=== PATIENT | female | born 1980 | race Caucasian/White ===

== ENCOUNTER 2019-06-23 19:59 | Emergency (ER) | payer OTHER ==
[2019-06-23 20:53] LABS: Absolute Lymphocytes (CBC) 2.9 K/uL (0.7-4.9); Basophils % 0.4 % (0-1.3); Hematocrit 36.7 % (36.0-45.0); MPV 9.2 fL (7.6-11.3); RBC Red Blood Cell Count 4.11 M/uL (3.86-4.86)
[2019-06-23 20:57] LABS: Protime INR 1.02
[2019-06-23 21:13] LABS: ALT/SGPT 34 U/L (12-78); AST/SGOT 18 U/L (15-37); Albumin 3.7 g/dL (3.4-5.0); Alkaline Phosphatase 72 U/L (45-117); BUN Blood Urea Nitrogen 13 mg/dL (7-18); Bicarbonate 27 mmol/L (21-32); Bilirubin Direct < 0.1 mg/dL (0-0.2); Bilirubin Total 0.2 mg/dL (0.2-1.0); Glucose Level 85 mg/dL (74-106); NT PRO-BNP 67 pg/mL (<125); Potassium 3.7 mmol/L (3.5-5.1); Protein, Total 7.3 g/dL (6.4-8.2); Sodium Level 141 mmol/L (136-145); Troponin (Emerg Dept Use Only) < 0.02 ng/mL (0.0-0.045)
[2019-06-23] MEDS ORDERED: FENTANYL CITR 100 MCG/2 ML ONE (21:19)
--- NOTE | 2019-06-23 23:27 | EDPHYS ---
Physician Documentation [facility] Name: Paris Lopez Age: 39 yrs Sex: Female : 1980 Arrival Date: 06/23/2019 Time: 20:05 Bed 28 Private MD: ED Physician Nirav Mobley HPI: 06/24 00:47 This 39 yrs old Female presents to ER via Wheelchair with complaints of Chest gs Pain. 00:47 The patient or guardian reports chest pain that is located primarily in the substernal gs area, anterior chest wall. The pain does not radiate. Associated signs and symptoms: Pertinent negatives: abdominal pain, diaphoresis, near syncope, shortness of breath. The chest pain is described as dull. Duration: The patient or guardian reports multiple episodes, that are intermittent, that wax and wane, with no pattern. Modifying factors: The symptoms are alleviated by nothing. the symptoms are aggravated by nothing. Severity of pain: At its worst the pain was moderate in the emergency department the pain is unchanged. The patient has experienced a previous episode. The patient has not recently seen a physician. 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 - Social history:: Smoking status: Patient/guardian denies using tobacco. - Ebola Screening: : Patient negative for fever greater than or equal to 101.5 degrees Fahrenheit, and additional compatible Ebola Virus Disease symptoms. ROS: 06/24 00:47 All other systems are negative. gs Exam: 00:47 Head/Face: Normocephalic, atraumatic. Eyes: Pupils equal round and reactive to light, gs extra-ocular motions intact. Lids and lashes normal. Conjunctiva and sclera are non-icteric and not injected. Cornea within normal limits. Periorbital areas with no swelling, redness, or edema. ENT: Nares patent. No nasal discharge, no septal abnormalities noted. Tympanic membranes are normal and external auditory canals are clear. Oropharynx with no redness, swelling, or masses, exudates, or evidence of obstruction, uvula midline. Mucous membranes moist. Neck: Trachea midline, no thyromegaly or masses palpated, and no cervical lymphadenopathy. Supple, full range of motion without nuchal rigidity, or vertebral point tenderness. No Meningismus. Chest/axilla: Normal chest wall appearance and motion. Nontender with no deformity. No lesions are appreciated. Cardiovascular: Regular rate and rhythm with a normal S1 and S2. No gallops, murmurs, or rubs. Normal PMI, no JVD. No pulse deficits. Respiratory: Lungs have equal breath sounds bilaterally, clear to auscultation and percussion. No rales, rhonchi or wheezes noted. No increased work of breathing, no retractions or nasal flaring. Abdomen/GI: Soft, non-tender, with normal bowel sounds. No distension or tympany. No guarding or rebound. No evidence of tenderness throughout. Back: No spinal tenderness. No costovertebral tenderness. Full range of motion. Skin: Warm, dry with normal turgor. Normal color with no rashes, no lesions, and no evidence of cellulitis. MS/ Extremity: Pulses equal, no cyanosis. Neurovascular intact. Full, normal range of motion. Neuro: Awake and alert, GCS 15, oriented to person, place, time, and situation. Cranial nerves II-XII grossly intact. Motor strength 5/5 in all extremities. Sensory grossly intact. Cerebellar exam normal. Normal gait. 00:47 Constitutional: The patient appears alert, awake. 00:47 ECG was reviewed by the Attending Physician. Vital Signs: 06/23 20:15 BP 155 / 83; Pulse 73; Resp 18 S; Temp 97.6(O); Pulse Ox 98% on R/A; Weight 115.67 kg jd3 (R); Height 5 ft. 9 in. (175.26 cm) (R); Pain 8/10; 21:15 BP 139 / 78; Pulse 69; Resp 15; Pulse Ox 96% on R/A; Pain 8/10; ss 22:22 BP 128 / 70; Pulse 76; Resp 15; Pulse Ox 99% on R/A; ss 20:15 Body Mass Index 37.66 (115.67 kg, 175.26 cm) jd3 MDM: 21:14 Patient medically screened. 23:26 Counseling: I had a detailed discussion with the patient and/or guardian regarding: the gs historical points, exam findings, and any diagnostic results supporting the discharge/admit diagnosis, the presence of at least one elevated blood pressure reading (>120/80) during this emergency department visit. Special discussion: I have referred the patient to see his PCP for further evaluation of high blood pressure. 06/24 00:47 Differential diagnosis: abnormal EKG, acute myocardial infarction, chest wall pain, gs pleurisy, pulmonary embolus, thoracic aortic disection. Data reviewed: vital signs, nurses notes, lab test result(s), EKG, radiologic studies. Counseling: I had a detailed discussion with the patient and/or guardian regarding: lab results, radiology results, the need for outpatient follow up. Response to treatment: the patient's symptoms have resolved after treatment, the patient's pain is gone, the patient's condition has returned to base line. 06/23 20:20 Order name: Basic Metabolic Panel; Complete Time: 21: 06/23 20:20 Order name: CBC with Diff; Complete Time: : 06/23 20:20 Order name: LFT's; Complete Time: 21: 06/23 20:20 Order name: Magnesium; Complete Time: : 06/23 20:20 Order name: NT PRO-BNP; Complete Time: 21: 06/23 20:20 Order name: PT-INR; Complete Time: 21: 06/23 20:20 Order name: Troponin (emerg Dept Use Only); Complete Time: : 06/23 20:20 Order name: XRAY Chest (1 view) 06/23 20:20 Order name: EKG; Complete Time: 20:21 06/23 20:20 Order name: Cardiac monitoring; Complete Time: 20:20 06/23 21:15 Order name: CT Chest For PE Angio 06/23 22:33 Order name: Troponin (emerg Dept Use Only); Complete Time: 23:18 06/23 20:20 Order name: EKG - Nurse/Tech; Complete Time: 20:21 06/23 20:20 Order name: IV Saline Lock; Complete Time: 20:21 06/23 20:20 Order name: Labs collected and sent; Complete Time: 20:21 06/23 20:20 Order name: O2 Per Protocol; Complete Time: 20: ss 06/23 20:20 Order name: O2 Sat Monitoring; Complete Time: 20: ss EC:47 Rate is 73 beats/min. Rhythm is regular. NV interval is normal. QRS interval is normal. gs No Q waves. T waves are Normal. No ST changes noted. Clinical impression: Normal ECG. Interpreted by me. Administered Medications: 06/23 21:24 Not Given (Hemodynamic Parameters; BP 139/78 Dr. Mobley notified ): Enalaprilat 0.625 mg ss IV at calculated rate once 21:24 Drug: fentaNYL (PF) 25 mcg {Note: 0.} Route: IVP; Site: left antecubital; ss 22:48 Follow up: Response: No adverse reaction; Pain is decreased; RASS: Alert and Calm (0) ss Disposition: 06/23/19 23:26 Discharged to Home. Impression: Chest pain, unspecified. - Condition is Stable. - Discharge Instructions: Nonspecific Chest Pain, Managing Your Hypertension. - Medication Reconciliation Form, Thank You Letter, Antibiotic Education, Prescription Opioid Use form. - Follow up: Private Physician; When: 2 - 3 days; Reason: Re-evaluation by your physician. Follow up: Hayden Liang MD; When: 2 - 3 days; Reason: Re-evaluation by your physician. Signatures: Dispatcher [employer] Lisa Montelongo RN RN ss Starr, Gregory, MD MD gs Davies, Jonathon, RN RN jd3 Corrections: (The following items were deleted from the chart) 23:40 23:26 06/23/2019 23:26 Discharged to Home. Impression: Chest pain, unspecified. ss Condition is Stable. Forms are Medication Reconciliation Form, Thank You Letter, Antibiotic Education, Prescription Opioid Use. Follow up: Private Physician; When: 2 - 3 days; Reason: Re-evaluation by your physician. Follow up: Hayden Liang; When: 2 - 3 days; Reason: Re-evaluation by your physician. gs
--- NOTE | 2019-06-23 23:27 | ER ---
Nurse's Notes [facility] Name: Paris Lopez Age: 39 yrs Sex: Female : 1980 Arrival Date: 06/23/2019 Time: 20:05 Bed 28 Private MD: Diagnosis: Chest pain, unspecified Presentation: 06/23 20:12 Presenting complaint: Patient states: "I have had chest pain since about 1200. it jd3 radiates to my left arm and under my left breast. It is also causing me to have shortness of breath and nausea.". Transition of care: patient was not received from another setting of care. Onset of symptoms was June 23, 2019. Risk Assessment: Do you want to hurt yourself or someone else? Patient reports no desire to harm self or others. Initial Sepsis Screen: Does the patient meet any 2 criteria? No. Patient's initial sepsis screen is negative. Does the patient have a suspected source of infection? No. Patient's initial sepsis screen is negative. Care prior to arrival: None. 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 - Social history:: Smoking status: Patient/guardian denies using tobacco. - Ebola Screening: : Patient negative for fever greater than or equal to 101.5 degrees Fahrenheit, and additional compatible Ebola Virus Disease symptoms. Screenin:21 Abuse screen: Denies threats or abuse. Denies injuries from another. Nutritional ss screening: No deficits noted. Tuberculosis screening: Never had TB. Fall Risk None identified. Assessment: 20:07 General: Appears in no apparent distress. comfortable, Behavior is calm, cooperative, ss quiet, Reports feeling ill for since noon today. Denies fever, fatigue, chills. Pain: Complains of pain in left breast Pain radiates to left arm Pain currently is 8 out of 10 on a pain scale. Quality of pain is described as aching, Pain began noon today Is continuous. Neuro: Level of Consciousness is awake, alert, obeys commands, Oriented to person, place, time, situation, Speech is normal, Facial symmetry appears normal, Pupils are PERRLA. Cardiovascular: Capillary refill < 3 seconds is brisk in bilateral fingers. Respiratory: Reports mild shortness of breath due to pain Breath sounds are clear bilaterally. Denies cough, pain with respiration, pain with cough, pain with movement. GI: Abdomen is non-distended, Bowel sounds present X 4 quads. Reports nausea, since noon today Patient currently denies diarrhea, vomiting. : No signs and/or symptoms were reported regarding the genitourinary system. Denies burning with urination, urinary frequency. EENT: Oral mucosa is moist. Derm: Skin is intact, is healthy with good turgor, Skin is dry, Skin is pink, warm \\T\\ dry. normal. 21:15 Reassessment: Patient appears in no apparent distress at this time. No changes from previously documented assessment. Patient and/or family updated on plan of care and expected duration. Pain level reassessed. 21:39 Reassessment: Pt to cT at this time VIA stretcher. ss 22:46 Reassessment: Repeat troponin sent. Awaiting results. Patient appears comfortable at this time. Friend/ family member remains at bedside at this time. Vital Signs: 20:15 BP 155 / 83; Pulse 73; Resp 18 S; Temp 97.6(O); Pulse Ox 98% on R/A; Weight 115.67 kg jd3 (R); Height 5 ft. 9 in. (175.26 cm) (R); Pain 8/10; 21:15 BP 139 / 78; Pulse 69; Resp 15; Pulse Ox 96% on R/A; Pain 8/10; ss 22:22 BP 128 / 70; Pulse 76; Resp 15; Pulse Ox 99% on R/A; ss 20:15 Body Mass Index 37.66 (115.67 kg, 175.26 cm) jd3 ED Course: 20:05 Patient arrived in ED. cl3 20:10 EKG done, by ED staff, reviewed by Nirav Mobley MD. jp3 20:12 Nirav Mobley MD is Attending Physician. gs 20:14 Triage completed. jd3 20:15 Warm blanket given. Verbal reassurance given. jp3 20:17 Arm band placed on. EKG completed in triage. Results shown to . noble 20:21 Patient has correct armband on for positive identification. Placed in gown. Bed in low ss position. Call light in reach. Side rails up X 1. electronic device monitor on. Pulse ox on. NIBP on. 20:21 Inserted saline lock: in left antecubital area, using aseptic technique. Blood ss collected. Patient maintains SpO2 saturation greater than 95% on room air. 20:31 Lisa Murry, RN is Primary Nurse. ss 20:51 XRAY Chest (1 view) In Process Unspecified. EDMS 22:03 CT Chest For PE Angio In Process Unspecified. EDMS 23:23 Hayden Liang MD is Referral Physician. 23:37 No provider procedures requiring assistance completed. IV discontinued, intact, ss bleeding controlled, No redness/swelling at site. Pressure dressing applied. Administered Medications: 21:24 Not Given (Hemodynamic Parameters; BP 139/78 Dr. Mobley notified ): Enalaprilat 0.625 mg ss IV at calculated rate once 21:24 Drug: fentaNYL (PF) 25 mcg {Note: 0.} Route: IVP; Site: left antecubital; ss 22:48 Follow up: Response: No adverse reaction; Pain is decreased; RASS: Alert and Calm (0) ss Outcome: 23:26 Discharge ordered by MD. 23:37 Discharged to home ambulatory, with friend. ss 23:37 Condition: good 23:37 Discharge instructions given to patient, friend, Instructed on discharge instructions, follow up and referral plans. medication usage, Demonstrated understanding of instructions, follow-up care, medications. 23:40 Patient left the ED. ss Signatures: Dispatcher [employer] EDKS Lisa Murry, RN Nirav Schwartz MD MD gs Davies, Jonathon, RN RN Joaquin Verdugo jp3 Edwin Peña
--- NOTE | 2019-06-24 08:00 | RAD REPORT ---
EXAM DESCRIPTION: RAD - Chest Single View - 06/23/2019 8:51 pm CLINICAL HISTORY: Chest pain COMPARISON: June 2010 TECHNIQUE: AP portable chest image was obtained 2033 . FINDINGS: Lung volumes are low accentuating lung markings. No focal consolidation. Mild interstitial edema or infiltrate can be masked in this setting. Cardiomediastinal silhouette is accentuated by po rtable technique and shallow inspiration. Heart size is upper normal. No measurable pleural effusion and no pneumothorax. No acute bony abnormality seen. No acute aortic findings suspected. IMPRESSION: Limited shallow inspiration portable imaging. Mild interstitial edema or infiltrate coul d be masked in this setting. No focal consolidation.
--- NOTE | 2019-06-24 09:38 | RAD REPORT ---
EXAM DESCRIPTION: CT - Chest For Pe Angio - 06/24/2019 1:51 am CLINICAL HISTORY: CHEST PAIN TECHNIQUE: Axial computed tomographic angiography images of the chest with intravenous contrast usin pulmonary embolism protocol. Sagittal and coronal reformatted images were created and reviewed. Sagittal and coronal reformatted images were created and reviewed. This CT exam was performed usin one or more of the following dose reduction techniques: automated exposure control, adjustment of the mA and/or kV according to patient size, and/or use of iterative reconstruction technique. MIP reconstructed images were created and reviewed. COMPARISON: No relevant prior studies available. FINDINGS: Limitations: None. Pulmonary arteries: Unremarkable. No pulmonary embolism. Aorta: No significant abnormality noted. No thoracic aortic aneurysm. Lungs: Vascular congestion. No mass. Pleural space: Unremarkable. No significant effusion. No pneumothorax. Heart: Cardiomegaly. No significant pericardial effusion. No evidence of RV dysfunction. Bones/joints: No acute fracture. No dislocation. Soft tissues: Unremarkable. Lymph nodes: Unremarkable. No enlarged lymph nodes. Liver: Fatty liver. IMPRESSION: 1. Vascular congestion. 2. No pulmonary embolus noted. Electronically signed by: Rayna Mcnulty MD 06/23/2019 10:17 PM CDT Due to temporary technical issues with the PACS/Fluency reporting system, reports are being signed by the in house radiologist as a courtesy to ensure prompt reporting. The interpreting radiologist is f ully responsible for the content of the report.
--- NOTE | 2019-06-24 11:37 | EKG ---
Test Date: 2019-06-23 Test Time: 20:07:52 Residential Designer: SERENA MEASUREMENT RESULTS: Intervals: Rate: 73 AL: 160 QRSD: 94 QT: 392 QTc: 431 Kerrick: P: 40 AL: 160 QRS: 32 T: 39 INTERPRETIVE STATEMENTS: Normal sinus rhythm Normal ECG No previous ECG available for comparison Electronically Signed On 06-24-19 11:34:49 CDT by Frantz Justice
== END 2019-06-23 23:40 | disposition home or self-care (01) ==
LOC: ER 19:59
DX: R07.9 Chest pain, unspecified (principal); Z88.5 Allergy status to narcotic agent
CPT/HCPCS: 93005; 85025; 80048; 36415; 83735; 85610; 80076; 84484 ×2; 83880; 71275; 71045; 96374; 99285; Q9967; J3010